=== PATIENT | male | born 1940 | race African-American/Black ===

== ENCOUNTER 2023-07-26 22:27 | Inpatient (IN) | payer MEDICARE, OTHER ==
[~2023-07-26] VITALS: Ht 165.1 cm; Wt 88.9 kg
[2023-07-26 23:27] LABS: BASOPHILS % (AUTO) 0.7 % (0.0-2.0); EOSINOPHILS # (AUTO) 0.1 K/uL (0.0-0.7); EOSINOPHILS % (AUTO) 1.8 % (0.0-6.0); HEMATOCRIT 38 % (39-51); HEMOGLOBIN 12.3 g/dL (13.5-17.5); LYMPHOCYTES # (AUTO) 1.8 K/uL (0.8-4.8); LYMPHOCYTES % (AUTO) 33.6 % (20.0-44.0); MEAN CORPUSCULAR HEMOGLOBIN 28 PG (26.0-33.0); MEAN CORPUSCULAR HGB CONC 32 g/dl (31.0-36.0); MEAN CORPUSCULAR VOLUME 86 fL (80-96); MONOCYTES # (AUTO) 1.3 K/uL (0.1-1.30); NEUTROPHILS # (AUTO) 2.1 K/uL (1.8-8.9); NEUTROPHILS % (AUTO) 39.9 % (43.0-81.0); PLATELET COUNT (AUTO) 184 K/uL (150-450); RED BLOOD CELL COUNT(AUTO) 4.44 MIL/uL (4.5-6.0); RED CELL DISTRIBUTION WIDTH 15.1 % (11.5-15.0); WHITE BLOOD COUNT (AUTO) 5.3 K/uL (4.3-11.0)
[2023-07-26 23:32] LABS: CALCIUM, SERUM 8.8 mg/dL (8.5-10.1); CARBON DIOXIDE 32 mmol/L (21-32); CHLORIDE 101 mmol/L (98-107); CREATININE 1.1 mg/dL (0.6-1.3); GLUCOSE 123 mg/dL (74-106); POTASSIUM 3.3 mmol/L (3.5-5.1); SODIUM SERUM 140 mmol/L (136-145); UREA NITROGEN, BLOOD 12 mg/dL (7-18)
[2023-07-26 23:45] LABS: ACETAMINOPHEN <10 ug/ml (10-30); ALANINE AMINOTRANSFERASE 17 U/L (12-78); ALBUMIN 2.7 g/dL (3.4-5.0); ALCOHOL, BLOOD 3 mg/dL (0-10); ALKALINE PHOSPHATASE 73 U/L (46-116); ASPARTATE AMINOTRANSFERASE 12 U/L (15-37); BILIRUBIN,DIRECT 0.2 mg/dL (0.0-0.2); BILIRUBIN,TOTAL 0.4 mg/dL (0.2-1.0); SALICYLATE 0.6 mg/dL (2.8-20.0); TOTAL PROTEIN, SERUM 7.1 g/dL (6.4-8.2)
[2023-07-26 23:45] LABS: APPEARANCE,URINE CLEAR (CLEAR); BILIRUBIN,URINE NEGATIVE (NEGATIVE); BLOOD, URINE NEGATIVE Ery/uL (NEGATIVE); COLOR,URINE YELLOW (YELLOW); KETONES,URINE NEGATIVE (NEGATIVE); LEUKOCYTE ESTERASE ,URINE 3+ (NEGATIVE); NITRITE, URINE POSITIVE (NEGATIVE); PROTEIN,URINE NEGATIVE (NEGATIVE); UGLUCOSE NEGATIVE (NEGATIVE)
[2023-07-26 23:49] LABS: ADD URINE CULTURE YES; BACTERIA,URINE Few /HPF (None Seen); SQUAMOUS EPITHELIAL CELL,UR Few /HPF (None Seen); WBC,URINE 21-50 /HPF (0-3)
[2023-07-26 23:51] LABS: AMPHETAMINE, URINE NEGATIVE (NEGATIVE); BARBITURATE, URINE NEGATIVE (NEGATIVE); BENZODIAZEPINE, URINE NEGATIVE (NEGATIVE); CANNABINOID, URINE NEGATIVE (NEGATIVE); COCCAINE, URINE NEGATIVE (NEGATIVE); OPIATE, URINE NEGATIVE (NEGATIVE); PHENCYCLIDINE SCREEN,URINE NEGATIVE (NEGATIVE)
[2023-07-27] MEDS: CIPROFLOXACIN HCL 500 MG TABLET PO ONE (01:17)
[2023-07-27] MEDS ORDERED: ACET325T53 PO (08:44)
[2023-07-27] MEDS ORDERED: ASCO100058 PO (08:44)
[2023-07-27] MEDS ORDERED: MAG30ORA PO (08:44)
[2023-07-27] MEDS ORDERED: MULT-594 PO (08:44)
[2023-07-27] MEDS ORDERED: ACET-637 PO (08:44)
[2023-07-27] MEDS ORDERED: CHLO25TA2 PO (08:44)
[2023-07-27] MEDS ORDERED: MAGN400O6 PO (08:44)
[2023-07-27] MEDS ORDERED: POTA10TA PO (08:44)
[2023-07-27] MEDS ORDERED: AMLO-212 PO (08:44)
[2023-07-27] MEDS ORDERED: FURO20TA4 PO (08:44)
[2023-07-27] MEDS ORDERED: DOCU250C14 PO (08:44)
[2023-07-27] MEDS ORDERED: PSYL822P6 PO (08:44)
[2023-07-27] MEDS ORDERED: CHOL200026 PO (08:44)
[2023-07-27] MEDS ORDERED: PALI117D IM (08:44)
[2023-07-27] MEDS ORDERED: NA P133E RC (08:44)
[2023-07-27] MEDS ORDERED: CIPROFLOXACIN HCL 500 MG TABLET ONE (09:04)
[2023-07-27] MEDS: CIPROFLOXACIN HCL 250 MG TABLET PO SCH (09:08)
[2023-07-27] MEDS ORDERED: MAGNESIUM HYDROXIDE 30 ML UDC PO PRN ×2 (11:00→14:00)
[2023-07-27] MEDS ORDERED: MAG HYDROX/AL HYDROX/SIMETH 30 ML UDC PO PRN ×2 (11:00→14:00)
[2023-07-27] MEDS ORDERED: TEMAZEPAM 7.5 MG CAPSULE PO PRN (11:00)
[2023-07-27] MEDS ORDERED: ACETAMINOPHEN 325 MG TABLET PO PRN ×2 (11:00→14:00)
[2023-07-27] MEDS: BLOOD SUGAR DIAGNOSTIC 1 EACH STRIP IN ONE (11:17)
[2023-07-27] MEDS ORDERED: ACETAMINOPHEN ES 500 MG TABLET PO PRN (14:00)
[2023-07-27] MEDS ORDERED: NA PHOS,M-B/NA PHOS,DI-BA 1 EA ENEMA RC PRN (14:00)
[2023-07-27] MEDS: CHOLECALCIFEROL 1,000 UNIT TABLET (VIT D3) PO SCH (15:03)
[2023-07-27] MEDS: risperiDONE 1 MG TABLET PO SCH (15:56)
[2023-07-27 16:00] VITALS: BP 137/78; TEMP 98.6; O2SAT 96
[2023-07-28 08:00] VITALS: BP 127/79; TEMP 97.8; O2SAT 95
[2023-07-28] MEDS: HYDROCHLOROTHIAZIDE 25 MG TABLET PO SCH (09:00)
[2023-07-28] MEDS: POTASSIUM CHLORIDE 10 MEQ TABLET.SA PO SCH (09:00)
[2023-07-28] MEDS: AMLODIPINE BESYLATE 5 MG TABLET PO SCH (09:00)
[2023-07-28] MEDS: DOCUSATE SODIUM 250 MG CAPSULE PO SCH (09:00)
[2023-07-28] MEDS: MULTIVITAMINS,THERAGRAN 1 UDTAB TABLET PO SCH (09:00)
[2023-07-28] MEDS: FUROSEMIDE 20 MG TABLET PO SCH (09:00)
[2023-07-28] MEDS: ASCORBIC ACID 500 MG TABLET PO SCH (09:00)
[2023-07-28 16:00] VITALS: BP 125/77; TEMP 97.8; O2SAT 96
[2023-07-28 20:00] VITALS: BP 138/75; TEMP 97.6; O2SAT 96
[2023-07-29 06:51] LABS: ALBUMIN 2.5 g/dL (3.4-5.0); BILIRUBIN,TOTAL 0.6 mg/dL (0.2-1.0); CREATININE 0.9 mg/dL (0.6-1.3); POTASSIUM 3.8 mmol/L (3.5-5.1); TOTAL PROTEIN, SERUM 6.8 g/dL (6.4-8.2)
[2023-07-29 07:14] LABS: CHOLESTEROL 86 mg/dL (<200); HDL CHOLESTEROL 49 mg/dL (40-60); LDL 32 mg/dL (0-99); TRIGLYCERIDES 51 mg/dL (30-150)
[2023-07-29 07:22] LABS: THYROID STIMULATING HORMONE 1.178 uIU/mL (0.358-3.74)
[2023-07-29 08:27] VITALS: BP 145/85; TEMP 97.9; O2SAT 96
[2023-07-29 16:15] VITALS: BP 113/59; TEMP 97.9; O2SAT 96
[2023-07-29 20:00] VITALS: BP 132/81; TEMP 98.4; O2SAT 97
[2023-07-30 08:00] VITALS: BP 134/81; TEMP 97.6; O2SAT 97
[2023-07-30 16:00] VITALS: BP 119/72; TEMP 98.2; O2SAT 98
[2023-07-30 21:15] VITALS: BP 128/74; TEMP 98; O2SAT 96
[2023-07-31 08:00] VITALS: BP 150/86; TEMP 98.6; O2SAT 98
[2023-07-31 16:00] VITALS: BP 143/98; TEMP 98.6; O2SAT 96
[2023-07-31 20:21] VITALS: BP 130/79; TEMP 98.4; O2SAT 98
[2023-08-01 08:00] VITALS: BP 129/92; TEMP 98.2; O2SAT 94
[2023-08-01 09:12] LABS: *SPE A/G RATIO 0.8 (0.7-1.7); *SPE ALBUMIN 2.9 g/dL (2.9-4.4); *SPE ALPHA-1-GLOBULIN 0.3 g/dL (0.0-0.4); *SPE ALPHA-2-GLOBULIN 0.9 g/dL (0.4-1.0); *SPE GLOBULIN, TOTAL 3.6 g/dL (2.2-3.9); *SPE M-SPIKE Not Observed g/dL (Not Observed); *SPE PROTEIN TOTAL 6.5 g/dL (6.0-8.5); *SPEGAMMA GLOBULIN 1.4 g/dL (0.4-1.8)
[2023-08-01] MEDS: PSYLLIUM SEED 1 PKT PACKET PO PRN (09:26)
[2023-08-01] MEDS: LORAZEPAM 0.5 MG TABLET PO PRN (10:58)
[2023-08-01] MEDS: risperiDONE 1 MG TABLET PO SCH (13:25)
[2023-08-01 15:58] VITALS: BP 136/79; TEMP 98; O2SAT 99
[2023-08-01 20:00] VITALS: BP 93/58; TEMP 98.1; O2SAT 98
[2023-08-02 08:00] VITALS: BP 116/87; TEMP 98; O2SAT 96
[2023-08-02 16:00] VITALS: BP 111/58; TEMP 98.3; O2SAT 100
[2023-08-02] MEDS: PALIPERIDONE 234 MG/1.5 ML IM ONE (16:59)
[2023-08-03 08:00] VITALS: BP 125/70; TEMP 98.9; O2SAT 99
[2023-08-03] MEDS: risperiDONE 1 MG TABLET PO SCH ×2 (08:00→10:00)
[2023-08-03] MEDS: OLANZAPINE 10 MG VIAL IM PRN (11:06)
[2023-08-03 16:00] VITALS: BP 122/78; TEMP 97.7; O2SAT 98
[2023-08-03 20:00] VITALS: BP 118/92; TEMP 98.4; O2SAT 96
[2023-08-04 08:00] VITALS: BP 125/88; TEMP 98; O2SAT 94
[2023-08-04 16:00] VITALS: BP 131/76; TEMP 97.6; O2SAT 96
[2023-08-04 20:00] VITALS: BP 129/81; TEMP 98.2; O2SAT 97
[2023-08-05 08:00] VITALS: BP 128/82; TEMP 98; O2SAT 98
[2023-08-05 16:00] VITALS: BP 129/86; TEMP 98.9; O2SAT 100
[2023-08-05 20:00] VITALS: BP 131/66; TEMP 98.1; O2SAT 95
[2023-08-06 08:00] VITALS: BP 138/85; TEMP 98.1; O2SAT 95
[2023-08-06 16:00] VITALS: BP 117/67; TEMP 97.7; O2SAT 98
[2023-08-06 20:13] VITALS: BP 120/72; TEMP 97.9; O2SAT 98
[2023-08-07 08:00] VITALS: BP 131/90; TEMP 98.6; O2SAT 98
== END 2023-08-07 13:37 | DRG 885 ==
LOC: ER 22:47 → GPS 07-27 05:41
PROVIDERS: ADMIT Psychiatry & Neurology Psychosomatic Medicine; ATTEND Nurse Practitioner Acute Care
DX: F29 Unspecified psychosis not due to a substance or known physiological condition (principal); N39.0 Urinary tract infection, site not specified; F03.93 Unspecified dementia, unspecified severity, with mood disturbance; F03.94 Unspecified dementia, unspecified severity, with anxiety; F03.911 Unspecified dementia, unspecified severity, with agitation; E44.0 Moderate protein-calorie malnutrition; E87.6 Hypokalemia; Z20.822 Contact with and (suspected) exposure to COVID-19; F12.90 Cannabis use, unspecified, uncomplicated; I10 Essential (primary) hypertension; Z73.6 Limitation of activities due to disability; F32.9 Major depressive disorder, single episode, unspecified; E88.09 Other disorders of plasma-protein metabolism, not elsewhere classified; F20.9 Schizophrenia, unspecified; Z91.148 Patient's other noncompliance with medication regimen for other reason; Z91.199 Patient's noncompliance with other medical treatment and regimen due to unspecified reason
CPT/HCPCS: 36415; 80048-TC; 80053-TC; 80061-TC; 80076-TC; 81001; 82728-TC; 82962-TC; 83540-TC; 84155; 84165; 84439-TC; 84443-TC; 85025-TC; 87081-TC; 87086-TC; G0480; J3490